=== PATIENT | female | born 1950 | race Caucasian/White ===

== ENCOUNTER → 2018-07-30 | Outpatient (CLI) | payer MEDICARE | LOC: LAB SHORT 16:28 → LAB 16:28 | DX: L08.9 Local infection of the skin and subcutaneous tissue, unspecified (principal) | CPT/HCPCS: 87070; 87077; 87147; 87186; 87205 ==

== ENCOUNTER 2023-01-31 07:48 | Emergency (ER) | payer MEDICARE ==
[~2023-01-31] VITALS: Ht 160 cm; Wt 77.1 kg
[2023-01-31 08:52] LABS: BASOPHILS ABSOLUTE AUTO 0.03 K/mm3 (0.00-0.23); BASOPHILS PERCENT AUTO 1 % (0-2); EOSINOPHILS ABSOLUTE AUTO 0.18 K/mm3 (0.00-0.68); EOSINOPHILS PERCENT AUTO 3 % (0-6); Hematocrit 44.1 % (33.0-51.0); Hemoglobin 14.7 g/dL (11.5-16.0); IMMATURE GRAN ABSOLUTE AUTO 0.03 K/mm3 (0.00-0.10); IMMATURE GRAN PERCENT AUTO 1 % (0-1); LYMPHOCYTES ABSOLUTE AUTO 1.44 K/mm3 (0.84-5.20); LYMPHOCYTES PERCENT AUTO 27 % (21-46); MONOCYTES ABSOLUTE AUTO 0.46 K/mm3 (0.16-1.47); MONOCYTES PERCENT AUTO 9 % (4-13); Mean Corpuscular HGB 28.2 pg (26.0-34.0); Mean Corpuscular HGB Conc 33.3 g/dL (31.5-36.5); Mean Corpuscular Volume 85 fL (80-100); Mean Platelet Volume 9.9 fL (9.1-12.4); NEUTROPHILS ABSOLUTE AUTO 3.27 K/mm3 (1.96-9.15); NEUTROPHILS PERCENT AUTO 60 % (41-73); Platelet Count 227 K/mm3 (150-400); RDW Coefficient Variation 13.2 % (11.7-14.2); RDW Standard Deviation 40.4 fL (35.1-46.3); Red Blood Cell Count 5.21 M/mm3 (3.80-5.20); White Blood Cell Count 5.41 K/mm3 (4.00-11.30)
[2023-01-31 09:25] LABS: Bun/Creatinine Ratio 19.1 (12.0-20.0); Creatinine, Blood 0.68 mg/dL (0.40-1.00); Potassium, Blood 3.8 mmol/L (3.5-5.5); Total Protein, Blood 7.6 g/dL (6.4-8.2)
[2023-01-31 09:26] LABS: Albumin/Globulin Ratio 1.1 (0.8-1.8); Bilirubin, Total 0.6 mg/dL (0.1-1.0); Globulin, Blood 3.6 g/dL (2.2-4.0)
[2023-01-31 09:59] LABS: Source, Urine Clean Catch
[2023-01-31 10:01] LABS: Appearance, Urine Clear (Clear); Bilirubin, Urine Neg (Neg); Blood, Urine Neg (Neg); Color, Urine Yellow (P-Yellow); Glucose Qualitative, Urine 3+ (Neg); Ketones, Urine Neg (Neg); Leukocyte Esterase, Urine Neg (Neg); Nitrite, Urine Neg (Neg); Protein, Urine 2+ (Neg); Specific Gravity, Urine 1.015 (1.003-1.022); Urobilinogen, Urine NORM (Normal)
[2023-01-31 10:19] LABS: Bacteria Few /hpf; Red Blood Cells, Urine Not Seen /hpf (0-2); Squamous Epithelial Cells Many /hpf (Few); Yeast/Fungi Urine Few /hpf
[2023-01-31 11:00] VITALS: BP 172/122
[2023-01-31] MEDS ORDERED: Prinivil10 MG PO (11:04)
[2023-01-31] MEDS ORDERED: Percocet 5-3251 EACH PO (11:04)
== END 2023-01-31 11:22 | disposition home or self-care (01) ==
LOC: ER 07:48
PROVIDERS: Student in an Organized Health Care Education/Training Program
DX: R10.32 Left lower quadrant pain (principal); I10 Essential (primary) hypertension; K57.30 Diverticulosis of large intestine without perforation or abscess without bleeding; Z79.899 Other long term (current) drug therapy
CPT/HCPCS: 74177; 80053; 81001; 83690; 85025; 93005; 93010; 96361; 96374; 96375; 99284-25; A9270; J1885; J2405; J3010; J7030; Q9967

== ENCOUNTER → 2023-02-09 | Outpatient (CLI) | payer MEDICARE ==
[~2023-02-09] MED LIST: Percocet 5-3251 EACH PO; Prinivil10 MG PO
[2023-02-09 12:36] LABS: BASOPHILS ABSOLUTE AUTO 0.04 K/mm3 (0.00-0.23); BASOPHILS PERCENT AUTO 1 % (0-2); EOSINOPHILS ABSOLUTE AUTO 0.14 K/mm3 (0.00-0.68); EOSINOPHILS PERCENT AUTO 2 % (0-6); Hematocrit 43.6 % (33.0-51.0); Hemoglobin 14.7 g/dL (11.5-16.0); IMMATURE GRAN ABSOLUTE AUTO 0.01 K/mm3 (0.00-0.10); IMMATURE GRAN PERCENT AUTO 0 % (0-1); LYMPHOCYTES PERCENT AUTO 26 % (21-46); MONOCYTES ABSOLUTE AUTO 0.55 K/mm3 (0.16-1.47); MONOCYTES PERCENT AUTO 10 % (4-13); Mean Corpuscular HGB 28.5 pg (26.0-34.0); Mean Corpuscular HGB Conc 33.7 g/dL (31.5-36.5); Mean Corpuscular Volume 85 fL (80-100); Mean Platelet Volume 10.3 fL (9.1-12.4); NEUTROPHILS ABSOLUTE AUTO 3.57 K/mm3 (1.96-9.15); NEUTROPHILS PERCENT AUTO 61 % (41-73); Platelet Count 278 K/mm3 (150-400); RDW Coefficient Variation 13.4 % (11.7-14.2); RDW Standard Deviation 41.7 fL (35.1-46.3); Red Blood Cell Count 5.16 M/mm3 (3.80-5.20); White Blood Cell Count 5.81 K/mm3 (4.00-11.30)
[2023-02-09 13:07] LABS: Albumin, Blood 3.9 g/dL (3.4-5.0); Albumin/Globulin Ratio 1.1 (0.8-1.8); Bilirubin, Total 0.5 mg/dL (0.1-1.0); Bun/Creatinine Ratio 20.3 (12.0-20.0); Calcium, Blood 9.5 mg/dL (8.5-10.1); Creatinine, Blood 0.74 mg/dL (0.40-1.00); Globulin, Blood 3.5 g/dL (2.2-4.0); Potassium, Blood 4.2 mmol/L (3.5-5.5); Total Protein, Blood 7.4 g/dL (6.4-8.2)
== END | disposition home or self-care (01) ==
LOC: LAB SHORT 11:58 → LAB 11:58
PROVIDERS: Physician Assistant
DX: R10.30 Lower abdominal pain, unspecified (principal)
CPT/HCPCS: 80053; 85025

== ENCOUNTER 2023-08-21 19:29 | Inpatient (IN) | payer MEDICARE ==
[~2023-08-21] VITALS: Ht 160 cm; Wt 78.1 kg
[2023-08-21 20:35] LABS: BASOPHILS ABSOLUTE AUTO 0.04 K/mm3 (0.00-0.23); BASOPHILS PERCENT AUTO 1 % (0-2); EOSINOPHILS ABSOLUTE AUTO 0.16 K/mm3 (0.00-0.68); EOSINOPHILS PERCENT AUTO 2 % (0-6); Hematocrit 41.4 % (33.0-51.0); IMMATURE GRAN ABSOLUTE AUTO 0.03 K/mm3 (0.00-0.10); IMMATURE GRAN PERCENT AUTO 0 % (0-1); LYMPHOCYTES ABSOLUTE AUTO 1.92 K/mm3 (0.84-5.20); LYMPHOCYTES PERCENT AUTO 28 % (21-46); MONOCYTES ABSOLUTE AUTO 0.56 K/mm3 (0.16-1.47); MONOCYTES PERCENT AUTO 8 % (4-13); Mean Corpuscular HGB Conc 33.8 g/dL (31.5-36.5); Mean Corpuscular Volume 86 fL (80-100); Mean Platelet Volume 10.2 fL (9.1-12.4); NEUTROPHILS ABSOLUTE AUTO 4.12 K/mm3 (1.96-9.15); NEUTROPHILS PERCENT AUTO 60 % (41-73); Platelet Count 259 K/mm3 (150-400); RDW Coefficient Variation 13.4 % (11.7-14.2); RDW Standard Deviation 41.6 fL (35.1-46.3); Red Blood Cell Count 4.83 M/mm3 (3.80-5.20); White Blood Cell Count 6.83 K/mm3 (4.00-11.30)
[2023-08-21 21:06] LABS: Albumin, Blood 3.7 g/dL (3.4-5.0); Albumin/Globulin Ratio 1.2 (0.8-1.8); Bilirubin, Total 0.5 mg/dL (0.1-1.0); Bun/Creatinine Ratio 31.4 (12.0-20.0); Calcium, Blood 9.2 mg/dL (8.5-10.1); Creatinine, Blood 0.7 mg/dL (0.40-1.00); Globulin, Blood 3.1 g/dL (2.2-4.0); Total Protein, Blood 6.8 g/dL (6.4-8.2)
[2023-08-22] VITALS (11 sets, daily range): BP systolic 144–193; BP diastolic 82–112
[2023-08-22] MEDS ORDERED: Nitroglycerin 0.4 MG SUBL ONE (00:06)
[2023-08-22] MEDS ORDERED: Nitroglycerin 0.4 MG SUBL SL PRN (00:10)
[2023-08-22] MEDS ORDERED: DiphenhydrAMINE HCl 50 MG/ML 1ML Vial IV ONE (00:20)
[2023-08-22] MEDS ORDERED: EPINEPhrine HCl 1 MG/ML 1ML Amp IM ONE (00:20)
[2023-08-22] MEDS ORDERED: MethylPREDNISolone Sod Succ 125 MG Vial IV ONE (00:20)
[2023-08-22] MEDS ORDERED: Famotidine 10 MG/ML 2ML Vial IV ONE (00:20)
[2023-08-22] MEDS ORDERED: Ondansetron HCl 2 MG / ML 2ML Vial ONE ×2 (00:24→00:48)
[2023-08-22] MEDS ORDERED: EpiNEPhrine 1 MG/1 ML 1ML Vial IM ONE (00:25)
[2023-08-22] MEDS ORDERED: Ondansetron HCl 2 MG / ML 2ML Vial IV ONE ×2 (00:45→00:50)
[2023-08-22] MEDS ORDERED: Midazolam HCl 1MG / ML 2ML Vial IV ONE (00:50)
[2023-08-22 01:17] LABS: Base Excess Venous -4.4 mmol/L; Bicarbonate Venous 20.7 mmol/L (24.0-30.0); PCO2 Venous 44.7 mmHg (38-42)
[2023-08-22] MEDS ORDERED: Ondansetron HCl 2 MG / ML 2ML Vial IV PRN (02:00)
[2023-08-22] MEDS ORDERED: HydrALAZINE HCl 20 MG / ML 1ML Vial IV PRN ×2 (02:05→12:50)
[2023-08-22] MEDS ORDERED: FentaNYL Citrate 50 MCG/ML 2 ML Injection IV ONE (02:20)
[2023-08-22] MEDS ORDERED: Furosemide 10 MG/ML 4ML Vial IV SCH ×2 (03:00→18:00)
[2023-08-22] MEDS ORDERED: ESCI10 PO (03:15)
[2023-08-22 03:28] LABS: BASOPHILS ABSOLUTE AUTO 0.04 K/mm3 (0.00-0.23); BASOPHILS PERCENT AUTO 0 % (0-2); EOSINOPHILS ABSOLUTE AUTO 0.02 K/mm3 (0.00-0.68); EOSINOPHILS PERCENT AUTO 0 % (0-6); Hematocrit 46.3 % (33.0-51.0); Hemoglobin 15.3 g/dL (11.5-16.0); IMMATURE GRAN ABSOLUTE AUTO 0.07 K/mm3 (0.00-0.10); IMMATURE GRAN PERCENT AUTO 1 % (0-1); LYMPHOCYTES ABSOLUTE AUTO 0.71 K/mm3 (0.84-5.20); LYMPHOCYTES PERCENT AUTO 7 % (21-46); MONOCYTES ABSOLUTE AUTO 0.27 K/mm3 (0.16-1.47); MONOCYTES PERCENT AUTO 3 % (4-13); Mean Corpuscular HGB 28.2 pg (26.0-34.0); Mean Corpuscular Volume 85 fL (80-100); Mean Platelet Volume 10.1 fL (9.1-12.4); NEUTROPHILS ABSOLUTE AUTO 9.61 K/mm3 (1.96-9.15); NEUTROPHILS PERCENT AUTO 90 % (41-73); Platelet Count 284 K/mm3 (150-400); RDW Coefficient Variation 13.6 % (11.7-14.2); RDW Standard Deviation 42.2 fL (35.1-46.3); Red Blood Cell Count 5.42 M/mm3 (3.80-5.20); White Blood Cell Count 10.72 K/mm3 (4.00-11.30)
[2023-08-22 03:55] LABS: Source, Urine Clean Catch
[2023-08-22 04:08] LABS: Albumin, Blood 3.8 g/dL (3.4-5.0); Albumin/Globulin Ratio 1.1 (0.8-1.8); Bilirubin, Total 0.5 mg/dL (0.1-1.0); Bun/Creatinine Ratio 34.3 (12.0-20.0); Creatinine, Blood 0.64 mg/dL (0.40-1.00); Globulin, Blood 3.5 g/dL (2.2-4.0); Potassium, Blood 4.1 mmol/L (3.5-5.5); Total Protein, Blood 7.3 g/dL (6.4-8.2)
[2023-08-22] MEDS ORDERED: Insulin Human Lispro 100 Units/ML 3ML Syringe SC ONE (04:30)
[2023-08-22] MEDS ORDERED: Insulin Glargine-Yfgn 100 Unit/mL 3 ML SYR SC SCH (05:00)
--- NOTE | 2023-08-22 05:17 | NUR ---
PATIENT TO ICU 7 FROM ER AT APPROX 0250. ALERT AND ORIENTED X4. EQUAL STRENGTH IN ALL EXTREMITIES, DOES COMPLAIN OF RIGHT ARM PAIN/TINGLING X2 WEEKS. SP02 95% ON BIPAP / FI02 40%, LS COARSE, RR 20s, PATIENT STATES SHE FEELS SOB WITH ACTIVITY. HR SR 90s, BP STABLE, PATIENT DENIES CP/PRESSURE. COVERED WITH ADDITIONAL DOSE OF INSULIN DUE TO GLUCOSE IN THE 400s PER DR. ANDINO. PATIENT USED BEDPAN SEVERAL TIMES, UA SENT, P[place]WICK NOW IN PLACE. INDEPENDENT WITH REPOSITIONING. CALL LIGHT IN REACH.
[2023-08-22 05:24] LABS: Appearance, Urine Clear (Clear); Bilirubin, Urine Neg (Neg); Blood, Urine Neg (Neg); Color, Urine Yellow (P-Yellow); Glucose Qualitative, Urine 4+ (Neg); Ketones, Urine 1+ (Neg); Leukocyte Esterase, Urine Neg (Neg); Nitrite, Urine Neg (Neg); Protein, Urine 2+ (Neg); Specific Gravity, Urine 1.015 (1.003-1.022); Urobilinogen, Urine NORM (Normal)
[2023-08-22 06:32] LABS: Bacteria Not Seen /hpf; Red Blood Cells, Urine 0-2 /hpf (0-2); Squamous Epithelial Cells Rare /hpf (Few); White Blood Cells, Urine Not Seen /hpf (0-5)
[2023-08-22] MEDS ORDERED: Insulin Human Lispro 100 Units/ML 3ML Syringe SC SCH ×2 (07:30→16:30)
[2023-08-22] MEDS ORDERED: Insulin Regular 100 UNIT/ML 10ML Vial SC ONE ×2 (07:45→07:55)
[2023-08-22] MEDS ORDERED: Enoxaparin 40 MG/0.4 ML SYR SC SCH (09:00)
[2023-08-22] MEDS ORDERED: Acetaminophen 325 MG TABLET PO PRN (10:05)
[2023-08-22 11:06] LABS: CHOL/HDL RATIO 7.1; Cholesterol 383 mg/dL (50-200); HDL Cholesterol 54 mg/dL (>39); LDL/HDL RATIO 5.2; Low Density Lipoprotein Chol 280 mg/dL (0-110); Triglycerides 243 mg/dL (30-160); Very Low Density Lipoprot Chol 48 mg/dL (6-32)
[2023-08-22] MEDS ORDERED: Furosemide 10 MG / ML 2ML Vial IV ONE (13:00)
[2023-08-22] MEDS ORDERED: Aspirin 325 MG Tab PO STA (13:17)
[2023-08-22] MEDS ORDERED: Atorvastatin 40 MG Tab PO SCH (14:00)
[2023-08-22 14:48] LABS: D-Dimer, Quantitative 1.14 mg/L FEU (0.00-0.52)
[2023-08-22 15:26] LABS: Anti-Xa UFH, PHA Monitoring 0.29 IU/mL; International Normalized Ratio 0.99; Prothrombin Time Results 10.6 Sec (9.7-11.5)
[2023-08-22] MEDS ORDERED: Heparin Sodium,Porcine/0.5 NS 500 ML IV SCH (15:35)
[2023-08-22] MEDS ORDERED: Heparin Sodium 5000 Units/ML 1ML MDV IV ONE (15:35)
--- NOTE | 2023-08-22 18:33 | NUR ---
Shift summary. Pt alert and oriented throughout shift, no acute events. Pt up to chair throughout shift, one person standby assist. Pt completed part of stress test today, scheduled to finish between 1430 and 1500 tomorrow, NPO after breakfast in the morning. Pt brought to PCU this aftenoon with this RN, all personal belongs brought with patient. See chart for further details. Will report off to nightshift RN.
[2023-08-22] MEDS ORDERED: Labetalol HCL 100 MG TAB PO SCH (21:00)
[2023-08-23] VITALS (9 sets, daily range): BP systolic 110–194; BP diastolic 60–98
[2023-08-23] MEDS ORDERED: Dose Adjust by Pharmacy XX STA ×3 (01:39→23:57)
[2023-08-23 05:14] LABS: BASOPHILS ABSOLUTE AUTO 0.03 K/mm3 (0.00-0.23); BASOPHILS PERCENT AUTO 0 % (0-2); EOSINOPHILS ABSOLUTE AUTO 0.01 K/mm3 (0.00-0.68); EOSINOPHILS PERCENT AUTO 0 % (0-6); Hematocrit 41.3 % (33.0-51.0); Hemoglobin 13.3 g/dL (11.5-16.0); IMMATURE GRAN ABSOLUTE AUTO 0.05 K/mm3 (0.00-0.10); IMMATURE GRAN PERCENT AUTO 1 % (0-1); LYMPHOCYTES ABSOLUTE AUTO 1.75 K/mm3 (0.84-5.20); LYMPHOCYTES PERCENT AUTO 17 % (21-46); MONOCYTES ABSOLUTE AUTO 0.96 K/mm3 (0.16-1.47); MONOCYTES PERCENT AUTO 9 % (4-13); Mean Corpuscular HGB 28.2 pg (26.0-34.0); Mean Corpuscular HGB Conc 32.2 g/dL (31.5-36.5); Mean Corpuscular Volume 88 fL (80-100); Mean Platelet Volume 10.4 fL (9.1-12.4); NEUTROPHILS PERCENT AUTO 74 % (41-73); Platelet Count 279 K/mm3 (150-400); RDW Coefficient Variation 13.7 % (11.7-14.2); RDW Standard Deviation 43.8 fL (35.1-46.3); Red Blood Cell Count 4.72 M/mm3 (3.80-5.20)
[2023-08-23 06:05] LABS: Albumin, Blood 3.6 g/dL (3.4-5.0); Albumin/Globulin Ratio 1.1 (0.8-1.8); Bilirubin, Total 0.7 mg/dL (0.1-1.0); Bun/Creatinine Ratio 36.5 (12.0-20.0); Calcium, Blood 9.9 mg/dL (8.5-10.1); Creatinine, Blood 0.82 mg/dL (0.40-1.00); Globulin, Blood 3.2 g/dL (2.2-4.0); Potassium, Blood 3.8 mmol/L (3.5-5.5); Total Protein, Blood 6.8 g/dL (6.4-8.2)
--- NOTE | 2023-08-23 06:27 | NUR ---
SHIFT SUMMARY PATIENT ALERT AND ORIENTED X4. MEDICATED PER EMAR FOR PAIN. PATIENT DENIES HAVING ANY CHEST PAIN/PRESSURE OR SHORTNESS OF BREATH. ON ROOM AIR WITH SPO2 >90%. VITAL SIGNS STABLE, SINUS RYTHM ON TELE. NO ACUTE ISSUES NOTED OVERNIGHT. WILL CONTINUE TO MONITOR. CALL LIGHT WITHIN REACH.
--- NOTE | 2023-08-23 07:31 | NUR ---
C/O pain in her right side of head, down to right shoulder and arm. B/P noted high, giving scheduled antihypertensive. CBG also noted high, covering per orders and giving glargine early. Pt is NPO for stress test. Will ask attending about the scheduled non sliding scale insulin for 9 am.
--- NOTE | 2023-08-23 07:49 | NUR ---
Given Tylenol for pain in head and arm. Pt states that it comes and goes, that it was the reason she presented to the ED in the first place, and that the pain is becoming more frequent.
[2023-08-23] MEDS ORDERED: Insulin Human Lispro 100 Units/ML 3ML Syringe SC SCH ×3 (08:30→16:30)
[2023-08-23] MEDS ORDERED: Insulin Glargine-Yfgn 100 Unit/mL 3 ML SYR SC SCH (09:00)
[2023-08-23] MEDS ORDERED: Empagliflozin 10 MG TAB PO SCH (09:00)
[2023-08-23] MEDS ORDERED: Lisinopril 20 MG Tab PO SCH (09:00)
[2023-08-23] MEDS ORDERED: Atorvastatin 40 MG Tab PO SCH (09:00)
[2023-08-23] MEDS ORDERED: Gabapentin 100 MG Cap PO SCH (14:00)
[2023-08-23] MEDS ORDERED: Regadenoson 0.4 MG/5 ML SYRINGE ONE (14:19)
[2023-08-23] MEDS ORDERED: Aminophylline 250MG / 10ML 10 ML Vial ONE (14:19)
--- NOTE | 2023-08-23 16:49 | NUR ---
SHIFT SUMMARY PT A&O X4, ABLE TO MAKE NEEDS KNOWN. PT REPORTED SOME PAIN OF HER HEAD, NECK, AND RIGHT ARM THIS SHIFT, MEDICATED PER EMR. SPO 2 >90% RA. PT DENIES SOB OR CP. VSS. PT HAD SOME NAUSEA THIS SHIFT, MEDICATED PER EMR. NO ACUTE CHANGES THIS SHIFT. PT IS RESTING COMFORTABLY, CALL LIGHT WITHIN REACH, BREATHING EVEN AND UNLABORED.
[2023-08-23] MEDS ORDERED: DiphenhydrAMINE HCL 25 MG Cap PO ONE (22:35)
[2023-08-24 04:28] VITALS: BP 115/68
--- NOTE | 2023-08-24 05:47 | NUR ---
SHIFT SUMMARY PATIENT ALERT AND ORIENTED X4. MEDICATED PER EMAR FOR SLEEP AND HEADACHE. PATIENT DENIES HAVING ANY CHEST PAIN OR SHORTNESS OF BREATH. PATIENT ON ROOM AIR WHILE AWAKE, PLACED ON 1 LITER O2 VIA NASAL CANULA OVERNIGHT SHE WAS NOTED TO DESAT OCCASIONALLY TO THE MID 80'S WHILE SLEEPING. VITAL SIGNS STABLE, SINUS RHYTHM ON TELE. WILL CONTINUE TO MONITOR. CALL LIGHT WITHIN REACH.
[2023-08-24 07:52] VITALS: BP 118/74
--- NOTE | 2023-08-24 08:00 | NUR ---
Call to [employer] Claim [employer]er office, left a message regarding diabetic education.
[2023-08-24 08:21] LABS: BASOPHILS ABSOLUTE AUTO 0.06 K/mm3 (0.00-0.23); BASOPHILS PERCENT AUTO 1 % (0-2); EOSINOPHILS ABSOLUTE AUTO 0.03 K/mm3 (0.00-0.68); EOSINOPHILS PERCENT AUTO 0 % (0-6); Hematocrit 42.1 % (33.0-51.0); Hemoglobin 13.4 g/dL (11.5-16.0); IMMATURE GRAN ABSOLUTE AUTO 0.02 K/mm3 (0.00-0.10); IMMATURE GRAN PERCENT AUTO 0 % (0-1); LYMPHOCYTES ABSOLUTE AUTO 2.56 K/mm3 (0.84-5.20); LYMPHOCYTES PERCENT AUTO 33 % (21-46); MONOCYTES ABSOLUTE AUTO 0.66 K/mm3 (0.16-1.47); MONOCYTES PERCENT AUTO 8 % (4-13); Mean Corpuscular HGB 28.3 pg (26.0-34.0); Mean Corpuscular HGB Conc 31.8 g/dL (31.5-36.5); Mean Corpuscular Volume 89 fL (80-100); Mean Platelet Volume 10.5 fL (9.1-12.4); NEUTROPHILS ABSOLUTE AUTO 4.51 K/mm3 (1.96-9.15); NEUTROPHILS PERCENT AUTO 57 % (41-73); Platelet Count 268 K/mm3 (150-400); RDW Standard Deviation 45.2 fL (35.1-46.3); Red Blood Cell Count 4.73 M/mm3 (3.80-5.20); White Blood Cell Count 7.84 K/mm3 (4.00-11.30)
--- NOTE | 2023-08-24 08:30 | NUR ---
heparin gtt turned off.
[2023-08-24 08:57] LABS: Albumin, Blood 3.5 g/dL (3.4-5.0); Albumin/Globulin Ratio 1.1 (0.8-1.8); Bilirubin, Total 0.6 mg/dL (0.1-1.0); Calcium, Blood 9.5 mg/dL (8.5-10.1); Creatinine, Blood 0.84 mg/dL (0.40-1.00); Globulin, Blood 3.2 g/dL (2.2-4.0); Potassium, Blood 3.5 mmol/L (3.5-5.5); Total Protein, Blood 6.7 g/dL (6.4-8.2)
[2023-08-24] MEDS ORDERED: Aspirin 81 MG Chew PO ONE (11:00)
[2023-08-24] MEDS ORDERED: ATOR80 PO (11:43)
[2023-08-24] MEDS ORDERED: JARDIANCE25 MG PO (11:44)
[2023-08-24] MEDS ORDERED: GABA100 PO (11:45)
[2023-08-24] MEDS ORDERED: LABE100 PO (11:47)
[2023-08-24] MEDS ORDERED: LISI20 PO (11:48)
[2023-08-24] MEDS ORDERED: TOUJEO MAX300 UNIT/2 SC (11:50)
[2023-08-24] MEDS ORDERED: METF500C PO (11:51)
[2023-08-24] MEDS ORDERED: ASPI81CH PO (11:52)
[2023-08-24 12:50] VITALS: BP 122/58
--- NOTE | 2023-08-24 12:52 | NUR ---
DISCHARGE PT DISCHARGED AT APPROXIMATELY 1250. PT LEFT UNIT VIA WC TO POV, PT TO DC TO HOME WITH HOME HEALTH. DISCHARGE INSTRUCTIONS REVIEWED WITH PATIENT AND , ALL QUESTIONS ANSWERED. VSS. PT DENIES SOB OR CP.
[2023-08-25] MEDS ORDERED: Citalopram Hydrobromide 20 MG Tab PO SCH (09:00)
[2023-08-25 20:45] LABS: CK TOTAL 173 U/L (26-192); CK-BB 0 % (0-0); CK-MACRO TYPE I 0 % (0-0); CK-MACRO TYPE II 0 % (0-0); CK-MB 0 % (0-4); CK-MM 100 % (96-100)
== END 2023-08-24 12:51 | disposition home or self-care (01) | DRG 280 ==
LOC: ER 19:29 → PCU 08-22 01:58 → ICUE 08-22 01:58 → PCU 08-22 16:22
PROVIDERS: Emergency Medicine; Family Medicine; Nurse Practitioner; Pharmacist; ADMIT Internal Medicine
PROC: 5A09357 Assistance with Respiratory Ventilation, Less than 24 Consecutive Hours, Continuous Positive Airway Pressure (ICD-10-PCS; principal; 2023-08-22)
DX: I16.1 Hypertensive emergency (principal); J81.0 Acute pulmonary edema; I21.4 Non-ST elevation (NSTEMI) myocardial infarction; J96.01 Acute respiratory failure with hypoxia; E87.20 Acidosis, unspecified; I50.32 Chronic diastolic (congestive) heart failure; I11.0 Hypertensive heart disease with heart failure; M54.12 Radiculopathy, cervical region; R13.10 Dysphagia, unspecified; E11.65 Type 2 diabetes mellitus with hyperglycemia; M25.521 Pain in right elbow; Z79.891 Long term (current) use of opiate analgesic; Z79.811 Long term (current) use of aromatase inhibitors; Z86.79 Personal history of other diseases of the circulatory system; Z79.899 Other long term (current) drug therapy
CPT/HCPCS: 36415; 70450; 70496; 70498; 71045; 71046; 78452; 80053; 80061; 81001; 82550; 82552; 82803; 82947; 83036; 83605; 83880; 84443; 84484; 85025; 85379; 85520; 85610; 85730; 93005; 93010; 93017; 93306; 93880; 94660; 94760; 94762; 96372-59; 96374-59; 96375-59; 97110; 97116; 97161; 97165; 99285-25; A9270; A9500; J0171; J0280; J1200; J1644; J1650; J1815; J1940; J2250; J2405; J2785; J2930; J3010; Q9967

== ENCOUNTER 2023-10-11 23:49 | Inpatient (IN) | payer MEDICARE ==
[~2023-10-11] VITALS: Ht 160 cm; Wt 79.5 kg
[~2023-10-11 23:49] MED LIST changes: +ASPI81CH PO; +ATOR80 PO; +ESCI10 PO; +GABA100 PO; +JARDIANCE25 MG PO; +LABE100 PO; +LISI20 PO; +METF500C PO; +TOUJEO MAX300 UNIT/2 SC
[2023-10-12] VITALS (15 sets, daily range): BP systolic 109–141; BP diastolic 70–98
[2023-10-12 00:16] LABS: BASOPHILS ABSOLUTE AUTO 0.07 K/mm3 (0.00-0.23); BASOPHILS PERCENT AUTO 1 % (0-2); EOSINOPHILS ABSOLUTE AUTO 0.44 K/mm3 (0.00-0.68); EOSINOPHILS PERCENT AUTO 4 % (0-6); Hematocrit 48.1 % (33.0-51.0); Hemoglobin 14.6 g/dL (11.5-16.0); IMMATURE GRAN ABSOLUTE AUTO 0.04 K/mm3 (0.00-0.10); IMMATURE GRAN PERCENT AUTO 0 % (0-1); LYMPHOCYTES ABSOLUTE AUTO 4.61 K/mm3 (0.84-5.20); LYMPHOCYTES PERCENT AUTO 40 % (21-46); MONOCYTES ABSOLUTE AUTO 0.97 K/mm3 (0.16-1.47); MONOCYTES PERCENT AUTO 8 % (4-13); Mean Corpuscular HGB 28.9 pg (26.0-34.0); Mean Corpuscular HGB Conc 30.4 g/dL (31.5-36.5); Mean Corpuscular Volume 95 fL (80-100); Mean Platelet Volume 9.9 fL (9.1-12.4); NEUTROPHILS ABSOLUTE AUTO 5.42 K/mm3 (1.96-9.15); NEUTROPHILS PERCENT AUTO 47 % (41-73); Platelet Count 345 K/mm3 (150-400); RDW Coefficient Variation 14.7 % (11.7-14.2); RDW Standard Deviation 51.2 fL (35.1-46.3); Red Blood Cell Count 5.06 M/mm3 (3.80-5.20); White Blood Cell Count 11.55 K/mm3 (4.00-11.30)
[2023-10-12 00:17] LABS: Base Excess Venous -11.6 mmol/L; Bicarbonate Venous 15.7 mmol/L (24.0-30.0); PCO2 Venous 43.4 mmHg (38-42); pH Blood Venous 7.19 (7.34-7.37)
[2023-10-12 00:40] LABS: Albumin, Blood 3.8 g/dL (3.4-5.0); Bilirubin, Total 0.4 mg/dL (0.1-1.0); Bun/Creatinine Ratio 20.2 (12.0-20.0); Calcium, Blood 10.1 mg/dL (8.5-10.1); Creatinine, Blood 0.84 mg/dL (0.40-1.00); Globulin, Blood 3.7 g/dL (2.2-4.0); Magnesium, Blood 2.5 mg/dL (1.6-2.4); Phosphorus, Blood 5.2 mg/dL (2.5-4.9); Potassium, Blood 4.4 mmol/L (3.5-5.5); Total Protein, Blood 7.5 g/dL (6.4-8.2)
[2023-10-12 00:46] LABS: D-Dimer, Quantitative 0.82 mg/L FEU (0.00-0.52); International Normalized Ratio 0.97; Prothrombin Time Results 10.4 Sec (9.7-11.5)
[2023-10-12] MEDS ORDERED: Acetaminophen 325 MG TABLET PO PRN (01:35)
[2023-10-12 02:04] LABS: Base Excess Venous -1.8 mmol/L; PCO2 Venous 55.9 mmHg (38-42); pH Blood Venous 7.26 (7.34-7.37)
--- NOTE | 2023-10-12 03:48 | NUR ---
CARE ASSUMPTION PATIENT ARRIVED TO PCU2 FROM ED AROUND 0230, ADMITTED FOR HYPOXIC AND HYPERCARBIC RESPIRATORY FAILURE ON BIPAP. PATIENT TOLERATING BIPAP WELL. SPO2 > 90%, 35% FIO2 ON BIPAP, RR 24. HR 70'S. HTN WITH SBP 130'S - 140'S. PATIENT IS CURRENTLY RESTING WITH HER EYES CLOSED, EVEN CHEST RISE AND FALL, EASY TO AROUSE. VGB IMPROVING.
[2023-10-12 03:55] LABS: BASOPHILS ABSOLUTE AUTO 0.02 K/mm3 (0.00-0.23); BASOPHILS PERCENT AUTO 0 % (0-2); EOSINOPHILS ABSOLUTE AUTO 0.08 K/mm3 (0.00-0.68); EOSINOPHILS PERCENT AUTO 1 % (0-6); Hematocrit 40.9 % (33.0-51.0); Hemoglobin 12.8 g/dL (11.5-16.0); IMMATURE GRAN ABSOLUTE AUTO 0.03 K/mm3 (0.00-0.10); IMMATURE GRAN PERCENT AUTO 0 % (0-1); LYMPHOCYTES ABSOLUTE AUTO 0.89 K/mm3 (0.84-5.20); LYMPHOCYTES PERCENT AUTO 10 % (21-46); MONOCYTES PERCENT AUTO 8 % (4-13); Mean Corpuscular HGB Conc 31.3 g/dL (31.5-36.5); Mean Corpuscular Volume 93 fL (80-100); Mean Platelet Volume 10.1 fL (9.1-12.4); NEUTROPHILS ABSOLUTE AUTO 6.89 K/mm3 (1.96-9.15); NEUTROPHILS PERCENT AUTO 80 % (41-73); Platelet Count 241 K/mm3 (150-400); RDW Coefficient Variation 14.8 % (11.7-14.2); RDW Standard Deviation 50.5 fL (35.1-46.3); Red Blood Cell Count 4.42 M/mm3 (3.80-5.20); White Blood Cell Count 8.61 K/mm3 (4.00-11.30)
[2023-10-12 04:17] LABS: Albumin, Blood 3.4 g/dL (3.4-5.0); Bilirubin, Total 0.5 mg/dL (0.1-1.0); Bun/Creatinine Ratio 27.2 (12.0-20.0); Calcium, Blood 9.6 mg/dL (8.5-10.1); Creatinine, Blood 0.66 mg/dL (0.40-1.00); Globulin, Blood 3.3 g/dL (2.2-4.0); Magnesium, Blood 2.2 mg/dL (1.6-2.4); Phosphorus, Blood 3.5 mg/dL (2.5-4.9); Potassium, Blood 4.4 mmol/L (3.5-5.5); Total Protein, Blood 6.7 g/dL (6.4-8.2)
[2023-10-12 05:20] LABS: Bicarbonate Venous 22.3 mmol/L (24.0-30.0); PCO2 Venous 42.6 mmHg (38-42); pH Blood Venous 7.35 (7.34-7.37)
--- NOTE | 2023-10-12 05:54 | NUR ---
S/W DR. LOOMIS REGARDING PATIENT TROPONIN AND VBG TREND. TROP 1065, TRENDING UP. VBG APPEARS TO BE IMPROVING WITH PATIENT ON BIPAP. MD TO ASSESS CHART AND PUT IN ORDERS.
[2023-10-12] MEDS ORDERED: Insulin Regular 100 UNIT/ML 10ML Vial SC SCH ×3 (06:00→16:30)
[2023-10-12] MEDS ORDERED: Heparin Sodium,Porcine/0.5 NS 500 ML IV SCH (06:45)
[2023-10-12] MEDS ORDERED: Heparin Sodium 5000 Units/ML 1ML MDV IV ONE (06:45)
[2023-10-12] MEDS ORDERED: Citalopram Hydrobromide 20 MG Tab PO SCH (09:00)
[2023-10-12] MEDS ORDERED: Azithromycin 500 MG in NS 250 ML IV SCH (09:00)
[2023-10-12] MEDS ORDERED: Empagliflozin 25 MG TAB PO SCH (09:00)
[2023-10-12] MEDS ORDERED: Lisinopril 20 MG Tab PO SCH (09:00)
[2023-10-12] MEDS ORDERED: Enoxaparin 40 MG/0.4 ML SYR SC SCH (09:00)
[2023-10-12] MEDS ORDERED: Labetalol HCL 100 MG TAB PO SCH (09:00)
[2023-10-12] MEDS ORDERED: Gabapentin 100 MG Cap PO SCH (09:00)
[2023-10-12] MEDS ORDERED: Furosemide 10 MG/ML 4ML Vial IV SCH (09:00)
[2023-10-12] MEDS ORDERED: Lactobacil 2-S.Thermo-Bifido 1 1 Cap PO SCH (09:00)
[2023-10-12] MEDS ORDERED: Atorvastatin 40 MG Tab PO SCH (09:00)
[2023-10-12] MEDS ORDERED: Aspirin 81 MG Chew PO SCH (09:00)
[2023-10-12] MEDS ORDERED: CefTRIAXone Sodium 1,000 MG in NS 100 ML IV SCH (09:00)
[2023-10-12] MEDS ORDERED: NS 1,000 ML IV ONE ×3 (12:50→14:13)
[2023-10-12] MEDS ORDERED: Heparin Sodium 1000 Units/ML 10ML MDV ONE ×2 (12:50→14:21)
[2023-10-12] MEDS ORDERED: NS 250 ML IV ONE (12:50)
[2023-10-12] MEDS ORDERED: NiCARdipine HCL 1,000 MCG/5 ML SYR ONE (12:51)
[2023-10-12] MEDS ORDERED: Nitroglycerin 2 MG/20 ML BTL ONE (12:51)
[2023-10-12] MEDS ORDERED: Midazolam HCl 1MG / ML 2ML Vial ONE (12:58)
[2023-10-12] MEDS ORDERED: FentaNYL Citrate 50 MCG/ML 2 ML Injection ONE (12:58)
[2023-10-12] MEDS ORDERED: MethylPREDNISolone Sod Succ 125 MG Vial IV ONE (13:00)
[2023-10-12] MEDS ORDERED: DiphenhydrAMINE HCl 50 MG/ML 1ML Vial IV ONE (13:00)
[2023-10-12] MEDS ORDERED: Famotidine 10 MG/ML 2ML Vial IV ONE (13:00)
[2023-10-12] MEDS ORDERED: Clopidogrel Bisulfate 300 MG Cap ONE (13:46)
[2023-10-12] MEDS ORDERED: Ondansetron HCl 2 MG / ML 2ML Vial IV PRN (15:15)
--- NOTE | 2023-10-12 18:12 | NUR ---
SHIFT SUMMARY PT IS A&oX4, CALLS APPROPRAITELY, AND MAKES HER NEEDS KNOWN. SHE HAS BEEN SR ON TELE, AND BP STABLE. SHE HAD AN ANGIOGRAM TODAY W/ DR. DE JESUS AND GOT TWO STENTS. AN EKG WAS DONE ONCE THE PT GOT BACK TO THE ROOM, EKG ORDER ON THE PT'S DOOR TO REMIND STAFF OF REPEAT EKG AT 0500 15. THE PT HAS DENIED ANY ANGINA OR CHEST PRESSURE. THE PT HAS BEEN BETWEEN 4L HFNC AND THE BIPAP 15/8 35%, SHE DENIES ANY SOB. CURRENTLY THE PT'SRIGHT RADIAL TRBAND IS STILL INTACT AND WE ARE SLOWLY DEFLATING THE BAND PER PROTOCOL. NO SIGNS OF BLEEDING OR HEMATOMA NOTED AT THIS TIME. THE PT'S FAMIYL HAS BEEN AT BEDSIDE AND UPDATED ON CARE. SEE NOTES FOR ANY UPDATES.
[2023-10-12] MEDS ORDERED: Insulin Glargine-Yfgn 100 Unit/mL 3 ML SYR SC SCH (21:00)
[2023-10-12] MEDS ORDERED: Metoprolol Succinate 50 MG TABCR PO SCH (21:00)
[2023-10-12] MEDS ORDERED: DiphenhydrAMINE HCL 25 MG Cap PO ONE (21:30)
[2023-10-13 00:13] VITALS: BP 105/62
[2023-10-13 03:46] LABS: BASOPHILS ABSOLUTE AUTO 0.02 K/mm3 (0.00-0.23); BASOPHILS PERCENT AUTO 0 % (0-2); EOSINOPHILS PERCENT AUTO 0 % (0-6); Hematocrit 40.3 % (33.0-51.0); Hemoglobin 12.9 g/dL (11.5-16.0); IMMATURE GRAN ABSOLUTE AUTO 0.02 K/mm3 (0.00-0.10); IMMATURE GRAN PERCENT AUTO 0 % (0-1); LYMPHOCYTES ABSOLUTE AUTO 0.87 K/mm3 (0.84-5.20); LYMPHOCYTES PERCENT AUTO 10 % (21-46); MONOCYTES ABSOLUTE AUTO 0.54 K/mm3 (0.16-1.47); MONOCYTES PERCENT AUTO 6 % (4-13); Mean Corpuscular HGB 29.1 pg (26.0-34.0); Mean Corpuscular Volume 91 fL (80-100); Mean Platelet Volume 10.1 fL (9.1-12.4); NEUTROPHILS ABSOLUTE AUTO 7.25 K/mm3 (1.96-9.15); NEUTROPHILS PERCENT AUTO 83 % (41-73); Platelet Count 317 K/mm3 (150-400); RDW Coefficient Variation 14.8 % (11.7-14.2); RDW Standard Deviation 49.9 fL (35.1-46.3); Red Blood Cell Count 4.43 M/mm3 (3.80-5.20)
[2023-10-13 03:51] VITALS: BP 123/73
[2023-10-13 04:22] LABS: Anion Gap 10 mmol/L (3-11); Blood Urea Nitrogen 24 mg/dL (8-24); CHOL/HDL RATIO 3.2; CO2, Blood 25 mmol/L (21-32); Calcium, Blood 9.2 mg/dL (8.5-10.1); Chloride, Blood 111 mmol/L (98-108); Cholesterol 231 mg/dL (50-200); Creatinine, Blood 0.86 mg/dL (0.40-1.00); Glomerular Filtration Rate 70 (60-); Glucose, Blood 205 mg/dL (70-99); HDL Cholesterol 72 mg/dL (>39); LDL/HDL RATIO 1.8; Low Density Lipoprotein Chol 131 mg/dL (0-110); Magnesium, Blood 2.4 mg/dL (1.6-2.4); Potassium, Blood 3.9 mmol/L (3.5-5.5); Sodium, Blood 142 mmol/L (136-145); Triglycerides 138 mg/dL (30-160); Very Low Density Lipoprot Chol 27 mg/dL (6-32)
--- NOTE | 2023-10-13 05:15 | NUR ---
SHIFT SUMMARY ASSUMED CARE OF PT AT 1900. PT IS A/OX4. HEART SOUNDS REGULAR. LUNG SOUNDS HAVE CRACKLES IN L LUNG AND R LUNG BASE. PT TITRATED TO 2L NC. DENIES SOB. PT 1P SBA TO BSC. PT SLEPT T/O THE NOC. NO ACUTE EVENTS.
[2023-10-13 07:14] VITALS: BP 139/68
[2023-10-13] MEDS ORDERED: Furosemide 40 MG Tab PO SCH (09:00)
[2023-10-13] MEDS ORDERED: Clopidogrel Bisulfate 75 MG Tab PO SCH (09:00)
[2023-10-13 11:13] VITALS: BP 130/72
[2023-10-13] MEDS ORDERED: Enoxaparin 40 MG/0.4 ML SYR SC SCH (15:00)
[2023-10-13 15:18] VITALS: BP 144/79
--- NOTE | 2023-10-13 16:44 | NUR ---
SHIFT SUMMARY PT REMAINS A&OX4, CALLS APPROPRIATLY, AND MAKES HER NEEDS KNOWN. SHE IS A SBA IN THE ROOM AND HAS BEEN HAVING HER FAMILY HELP HER GET UP TO THE BATHROOM. ON TELE SHE HAS BEEN SR AND BP STABLE. SHE HAS BEEN TITRAITED OFF OXYGEN AND HAS IT ON STANDBY FROM SOB; WHICH SHE HAD ONCE TODAY WHEN ON THE PHONE WITH HER DAUGHTER. THE PT IS ACHS AND BLOOD SUGARS HAVE BEEN MONITORED PER EMAR W/ LOW SLIDING SCALE. THE PT IS MEDICAL STATUS WITH TELE. HER RIGHT WRIST HAS A TEGADERM C/D/I POST ANGIO 10/11. NO ACUTE EVNETS THIS SHIFT. SEE NOTES FOR ANY UPDATES.
--- NOTE | 2023-10-13 18:00 | NUR ---
ASSUMED CARE NOTE RECEIVED REPORT FROM ROOF DESIGNERMELVA BATES AND ASSUMED CARE OF PT AT 17:50. PT A&OX4, AMB FROM W/C TO BED W/ SBA, AND DENIED PAIN. PT ORIENTED TO ROOM AND CALL LIGHT. CALL LIGHT WITHIN REACH AND PT ABLE TO MAKE NEEDS KNOWN.
[2023-10-13 20:20] VITALS: BP 141/78
[2023-10-13] MEDS ORDERED: Atorvastatin 40 MG Tab PO SCH (21:00)
[2023-10-13] MEDS ORDERED: Sacubitril/Valsartan 24 MG-26 MG Tab PO SCH (21:00)
[2023-10-14 03:41] VITALS: BP 178/95
[2023-10-14] MEDS ORDERED: Nitroglycerin 0.4 MG SUBL SL PRN (04:00)
--- NOTE | 2023-10-14 05:04 | NUR ---
PAYMENT PROCESSOR PATIENT IS A&OX4, VITALS WERE STABLE AT THE BEGINNING OF THE SHIFT BUT IS ELEVATED THIS MORNING. LAST VITAL READING 178/95, PULSE 69, O2 97. AT 0400 PATIENT CALLED AND COMPLAINED OF CHEST TIGHTNESS AND, PAIN AND SHORTNESS OF BREATH. DESPITE PATIENT O2 SATING AT A 97 PERCENT, SHE WAS GASPING FOR AIR AND SAID THAT SHE WAS HAVING TROUBLE BREATHING. 2L NC WAS APPLIED AND MD WAS NOTIFIED. MD ORDERED NITRO AND A LAB WORK. 1TAB NITRO WAS GIVEN. AFTER ADMINISTERING O2 AND A NITRO SHE SAID THAT HER BREATHING WAS IMPROVING AND THE CHEST TIGHTNESS WAS GOING AWAY. PATIENT IS CURRENTLY SATTING BETWEEN 95 TO 98 PERCENT.
[2023-10-14 05:27] LABS: Base Excess Venous 2.2 mmol/L; Bicarbonate Venous 25.7 mmol/L (24.0-30.0); PCO2 Venous 42.5 mmHg (38-42); pH Blood Venous 7.41 (7.34-7.37)
[2023-10-14 05:58] LABS: BASOPHILS ABSOLUTE AUTO 0.04 K/mm3 (0.00-0.23); BASOPHILS PERCENT AUTO 1 % (0-2); EOSINOPHILS ABSOLUTE AUTO 0.09 K/mm3 (0.00-0.68); EOSINOPHILS PERCENT AUTO 1 % (0-6); Hematocrit 40.7 % (33.0-51.0); Hemoglobin 13.1 g/dL (11.5-16.0); IMMATURE GRAN ABSOLUTE AUTO 0.02 K/mm3 (0.00-0.10); IMMATURE GRAN PERCENT AUTO 0 % (0-1); LYMPHOCYTES PERCENT AUTO 28 % (21-46); MONOCYTES ABSOLUTE AUTO 0.85 K/mm3 (0.16-1.47); MONOCYTES PERCENT AUTO 11 % (4-13); Mean Corpuscular HGB 29.2 pg (26.0-34.0); Mean Corpuscular HGB Conc 32.2 g/dL (31.5-36.5); Mean Corpuscular Volume 91 fL (80-100); Mean Platelet Volume 10.3 fL (9.1-12.4); NEUTROPHILS ABSOLUTE AUTO 4.65 K/mm3 (1.96-9.15); NEUTROPHILS PERCENT AUTO 59 % (41-73); Platelet Count 265 K/mm3 (150-400); RDW Coefficient Variation 14.7 % (11.7-14.2); RDW Standard Deviation 49.2 fL (35.1-46.3); Red Blood Cell Count 4.49 M/mm3 (3.80-5.20); White Blood Cell Count 7.85 K/mm3 (4.00-11.30)
[2023-10-14 06:20] LABS: Bun/Creatinine Ratio 48.7 (12.0-20.0); Calcium, Blood 9.2 mg/dL (8.5-10.1); Creatinine, Blood 0.6 mg/dL (0.40-1.00); Magnesium, Blood 2.5 mg/dL (1.6-2.4); Potassium, Blood 3.6 mmol/L (3.5-5.5)
[2023-10-14 07:07] VITALS: BP 146/74
--- NOTE | 2023-10-14 07:28 | NUR ---
ASSUMED CARE: PT WEARING 2L O2 VIA NC. SINUS CANDIDA AT 56 ON TELE. DENIES CHEST PAIN OR PRESSURE AT THIS TIME. SPOUSE AT BEDSIDE. NO ACUTE NEEDS OR CONCERNS.
[2023-10-14] MEDS ORDERED: Potassium Chloride 20 MEQ TabCR PO SCH (10:00)
[2023-10-14] MEDS ORDERED: Celexa20 MG PO (11:32)
[2023-10-14] MEDS ORDERED: CLOP75 PO (11:33)
[2023-10-14] MEDS ORDERED: FURO40 PO (11:34)
[2023-10-14] MEDS ORDERED: INSULIN GL100 UNIT/1 SC (11:37)
[2023-10-14] MEDS ORDERED: Isosorbide Mono30 MG PO (11:38)
[2023-10-14] MEDS ORDERED: METO50ER PO (11:39)
[2023-10-14] MEDS ORDERED: POTCHL20ER PO (11:41)
[2023-10-14] MEDS ORDERED: NITR.4SL SL (11:41)
[2023-10-14] MEDS ORDERED: Acetaminophen325 M1 PO (11:43)
--- NOTE | 2023-10-14 12:13 | NUR ---
PT'S HAD QUESTIONS ABOUT MEDICATION ORDERS. STATES PT TAKES LABETOLOL AND LISINOPRIL. CALL TO DR LYLES WHO STATES ENTERESTO AND METOPROLOL ARE ORDERED INSTEAD.
[2023-10-14] MEDS ORDERED: ENTRESTO 24 MG1 EACH PO (12:50)
--- NOTE | 2023-10-14 13:59 | NUR ---
DISCHARGE NOTE PATIENT EDUCATED REGARDING NEW MEDICATIONS AND TO DISCONTINUE PREVIOUS MEDICATIONS THAT ARE NO LONGER ON LIST. SPENT 15 MINUTES PROVIDING EDUCATION REGARDING HEART FAILURE, STENT PLACEMENT, MEDICATION CHANGES, AND HOSPITAL FOLLOW UPS, INCLUDING PRIMARY CARE AND CARDIAC REHAB. PATIENT WAS ALSO EDUCATED REGARDING DIETARY RESTRICTIONS. AT BEDSIDE DURING EDUCATION, ALL QUESTIONS ANSWERED. PIV REMOVED, TELEMTERY REMOVED AND RETURNED. PATIENT A/OX4 AND DENIES CHEST PAIN AND SHORTNESS OF BREATH. INCISION TO WRIST C/D/I, NO SIGNS AND SYMPTOMS OF INFECTION NOTED. FAMILY AND PATIENT WITH NO CONCERNS AT THIS TIME. PATIENT ASSISTED VIA WHEELCHAIR TO 'S VEHICLE BY RENE.
[2023-10-14] MEDS ORDERED: Isosorbide Mononitrate 30 MG TABCR PO SCH (18:00)
== END 2023-10-14 13:33 | disposition home or self-care (01) | DRG 321 ==
LOC: ER 23:49 → PCU 10-12 01:33 → MEDS 10-13 17:47 → ENPENDDIS 10-14 11:09 → MEDS 10-14 13:33
PROVIDERS: Emergency Medicine; Internal Medicine Cardiovascular Disease; ADMIT Student in an Organized Health Care Education/Training Program
PROC: 027135Z Dilation of Coronary Artery, Two Arteries with Two Drug-eluting Intraluminal Devices, Percutaneous Approach (ICD-10-PCS; principal; 2023-10-12)
PROC: B2111ZZ Fluoroscopy of Multiple Coronary Arteries using Low Osmolar Contrast (ICD-10-PCS; 2023-10-12)
PROC: 4A023N7 Measurement of Cardiac Sampling and Pressure, Left Heart, Percutaneous Approach (ICD-10-PCS; 2023-10-12)
PROC: 5A09457 Assistance with Respiratory Ventilation, 24-96 Consecutive Hours, Continuous Positive Airway Pressure (ICD-10-PCS; 2023-10-12)
DX: I21.4 Non-ST elevation (NSTEMI) myocardial infarction (principal); I50.21 Acute systolic (congestive) heart failure; I50.33 Acute on chronic diastolic (congestive) heart failure; J96.01 Acute respiratory failure with hypoxia; J96.02 Acute respiratory failure with hypercapnia; E87.20 Acidosis, unspecified; I11.0 Hypertensive heart disease with heart failure; E78.5 Hyperlipidemia, unspecified; I25.5 Ischemic cardiomyopathy; R94.31 Abnormal electrocardiogram [ECG] [EKG]; E11.9 Type 2 diabetes mellitus without complications; M79.601 Pain in right arm; I25.10 Atherosclerotic heart disease of native coronary artery without angina pectoris; G89.29 Other chronic pain; Z79.4 Long term (current) use of insulin; Z79.82 Long term (current) use of aspirin; Z79.899 Other long term (current) drug therapy
CPT/HCPCS: 36415; 71045; 76937; 80048; 80053; 80061; 82803; 82947; 83605; 83735; 83880; 84100; 84145; 84484; 85025; 85347; 85379; 85520; 85610; 85730; 86850; 86900; 86901; 87040; 93005; 93010; 93458; 94660; 94761; 94762; 99152; 99153; 99285-25; A9270; C1725; C1769; C1874; C1887; C1894; C8929; C9600; C9601; J0456; J0696; J1200; J1644; J1650; J1815; J1940; J2250; J2405; J2919; J3010; J7030; J7050; Q9957; Q9967